=== PATIENT | female | born 1970 | race Caucasian/White ===

== ENCOUNTER 2017-10-22 23:26 | Emergency (ER) | END 2017-10-23 00:20 | disposition left against medical advice (07) ==

== ENCOUNTER 2017-11-16 20:53 | Emergency (ER) | END 2017-11-16 21:42 | disposition home or self-care (01) ==

== ENCOUNTER 2017-11-29 03:25 | Emergency (ER) | END 2017-11-29 05:46 | disposition home or self-care (01) ==

== ENCOUNTER 2018-01-18 00:34 | Emergency (ER) | END 2018-01-18 04:43 | disposition home or self-care (01) ==

== ENCOUNTER 2018-02-12 02:51 | Emergency (ER) | END 2018-02-12 04:25 | disposition left against medical advice (07) ==